=== PATIENT | female | born 1995 | race Two or more races ===

== ENCOUNTER 2017-09-07 00:20 | Emergency (ER) | payer SELFPAY ==
[~2017-09-07] VITALS: Ht 152.4 cm; Wt 53.0 kg
[2017-09-07 05:39] LABS: BASOPHILS % 0.4 % (0.0-2.0); HEMATOCRIT. 31.5 % (36.0-48.0); HEMOGLOBIN. 10.6 g/dL (12.0-16.0); LYMPHOCYTES % 30.8 % (20.0-50.0); MEAN CORPUSCULAR HEMOGLOBIN 29.6 pg (28.0-32.0); MEAN PLATELET VOLUME 7.7 fl (7.4-10.4); MONOCYTES % 7.8 % (2.0-8.0); PLATELET 293 x1000/uL (130-400); RED BLOOD CELL COUNT 3.58 mill/uL (4.2-5.4); RED CELL DISTRIBUTION WIDTH 13.7 % (11.6-14.6)
[2017-09-07 05:43] LABS: CHLORIDE 108 mEq/L (98-107)
[2017-09-07 05:54] LABS: B-HCG QUANTITATIVE 25437 mIU/mL (<3)
[2017-09-07 07:09] LABS: CLARITY URINE CLEAR (CLEAR); COLOR URINE YELLOW (YELLOW); KETONES URINE NEGATIVE (NEGATIVE); LEUKOCYTE ESTERASE URINE 2+ (NEGATIVE); NITRITE URINE NEGATIVE (NEGATIVE); OCCULT BLOOD URINE NEGATIVE (NEGATIVE); PH URINE 6.5 (4.5-8.0); PROTEIN URINE NEGATIVE (NEGATIVE); SPECIFIC GRAVITY URINE 1.013 (1.005-1.030); UROBILINOGEN URINE 0.2 E.U./dL (0.2-1.0)
[2017-09-07 08:47] VITALS: BP 97/59
== END 2017-09-07 08:50 | disposition home or self-care (01) ==
LOC: ER 00:20
DX: O23.42 Unspecified infection of urinary tract in pregnancy, second trimester (principal); Z3A.16 16 weeks gestation of pregnancy
CPT/HCPCS: 36415; 76815; 80053; 81003; 81025; 84702; 85025; 86850; 86900; 86901; 99285; Z7610